=== PATIENT | male | born 1950 | race Caucasian/White ===

== ENCOUNTER → 2020-01-24 | Outpatient (CLI) | payer MEDICARE ==
--- NOTE | 2020-01-24 12:50 | XR ---
EXAMINATION TYPE: XR cervical spine 5 views, XR shoulder complete 3 views RT DATE OF EXAM: 01/24/2020 COMPARISON: NONE HISTORY: 69-year-old male M19.90, golfing injury FINDINGS: Cervical spine: Moderate disc/endplate degenerative change as well as uncovertebral joint and facet arthropathy mid t o lower cervical spine. Reversal of the normal cervical lordosis centered at C4. Cervical thoracic ju nction is obscured by the patient's shoulders and not assessed. Remaining alignment is maintained. No predental space widening or prevertebral soft tissue swelling. Limited odontoid view suggests some d egenerative joint space narrowing along the right C1-C2 lateral mass articulation. Right shoulder: Moderate to severe degenerative joint space narrowing with marginal spurring at the acromioclavicular joint. Subacromial space is preserved. No acute fracture, subluxation, dislocation. IMPRESSION: 1. Cervical spine: Prominent reversal of the normal cervical lordosis. The cervicothoracic junction i s obscured by the patient's shoulders and not assessed. Remaining alignment is maintained. Moderate s pondylotic change especially mid to lower cervical spine. 2. Right shoulder: Moderate to severe right AC joint OA. There is inferior spurring which may contrib ingrid to subacromial impingement. No acute osseous abnormality seen.
== END | disposition home or self-care (01) ==
LOC: RADXRMAIN 11:00
PROVIDERS: ATTEND Internal Medicine
DX: M47.812 Spondylosis without myelopathy or radiculopathy, cervical region (principal); R90.89 Other abnormal findings on diagnostic imaging of central nervous system; M19.011 Primary osteoarthritis, right shoulder
CPT/HCPCS: 72040

== ENCOUNTER 2023-01-22 02:37 | Emergency (ER) | payer MEDICARE ==
--- NOTE | 2023-01-22 03:04 | ED ---
General Adult HPI - General Chief complaint: Chest Pain Stated complaint: Chest Pain Time Seen by Provider: 01/22/23 02:47 Source: patient Mode of arrival: ambulatory Limitations: no limitations - History of Present Illness Initial comments: Dictation was produced using [employer] dictation software. please excuse any grammatical, word or spelling errors. Chief Complaint: 72-year-old male presents to the emergency department for chest pain History of Present Illness: Patient's 72-year-old male has multiple comorbidities. Patient presents with chest pain. States that his pain is in his right lower chest. States that his been exerting himself recently. This evening he couldn't get comfortable. States that the pain was sharp. Nonradiating not associated with diaphoresis or nausea. She denies any symptoms currently. The ROS documented in this emergency department record has been reviewed and confirmed by me. Those systems with pertinent positive or negative responses have been documented in the HPI. All other systems are other negative and/or noncontributory. - Related Data Home Medications Medication Instructions Recorded Confirmed Metoprolol Succinate [Toprol XL] 11/20/14 11/20/14 lisinopriL [Prinivil] 11/20/14 11/20/14 Previous Rx's Medication Instructions Recorded Meclizine [Antivert] 25 mg PO BID PRN #10 tab 11/20/14 Allergies Allergy/AdvReac Type Severity Reaction Status Date / Time Penicillins Allergy Unknown Verified 11/20/14 20:43 Childhood Review of Systems ROS Statement: Those systems with pertinent positive or pertinent negative responses have been documented in the HPI. ROS Other: All systems not noted in ROS Statement are negative. Past Medical History Past Medical History: Hypertension, Syncope History of Any Multi-Drug Resistant Organisms: None Reported Past Surgical History: Orthopedic Surgery, Pacemaker Additional Past Surgical History / Comment(s): hip surgery Past Psychological History: No Psychological Hx Reported Past Alcohol Use History: Daily Past Drug Use History: None Reported General Exam - General Exam Comments Initial Comments: PHYSICAL EXAM: General Impression: Alert and oriented x3, not in acute distress HEENT: Normocephalic atraumatic, extra-ocular movements intact, pupils equal and reactive to light bilaterally, mucous membranes moist. Cardiovascular: Heart regular rate and rhythm Chest: Able to complete full sentences, no retractions, no tachypnea Abdomen: abdomen soft, non-tender, non-distended, no organomegaly Musculoskeletal: Pulses present and equal in all extremities, no peripheral edema Motor: no focal deficits noted Neurological: CN II-XII grossly intact, no focal motor or sensory deficits noted Skin: Intact with no visualized rashes Psych: Normal affect and mood Limitations: no limitations Course Vital Signs 01/22/23 01/22/23 02:40 04:00 Temperature 98.0 F Pulse Rate 100 68 Respiratory 18 16 Rate Blood Pressure 175/105 168/89 O2 Sat by Pulse 98 97 Oximetry EKG Findings - EKG Comments: EKG Findings:: My EKG interpretation: Ventricular rate 84, atrial paced rhythm,. We'll to 20, QRS 112, QTC 49. No MT prolongation, no QTC prolongation, no ST or T-wave changes noted. . Overall, this EKG is unremarkable Medical Decision Making - Medical Decision Making Was pt. sent in by a medical professional or institution (, PA, ROOMS DIRECTOR, urgent care, hospital, or intermediate...) When possible be specific @ -No Did you speak to anyone other than the patient for history (EMS, parent, family, police, friend...)? What history was obtained from this source @ -No Did you review nursing and triage notes (agree or disagree)? Why? @ -I reviewed and agree with nursing and triage notes Were old charts reviewed (outside hosp., previous admission, EMS record, old EKG, old radiological studies, urgent care reports/EKG's, intermediate records)? Report findings @ -No old charts were reviewed Differential Diagnosis (chest pain, altered mental status, abdominal pain women, abdominal pain men, vaginal bleeding, musculoskeletal, weakness, fever, dyspnea, syncope, headache, dizziness, GI bleed, back pain, seizure, CVA, palpatations, mental health)? @ -Differential Chest Pain: Stable Angina, Unstable Angina, STEMI, NSTEMI Aortic Dissection, Pneumothorax, Musculoskeletal, Esophageal Spasm GERD, Cholecystitis, Pancreatitis, Zoster, this is not meant to be an all-inclusive list. EKG interpreted by me (3pts min.). @ -As above X-rays interpreted by me (1pt min.). @ -View chest x-ray shows no acute processes CT interpreted by me (1pt min.). @ -None done U/S interpreted by me (1pt. min.). @ -None done What testing was considered but not performed or refused? (CT, X-rays, U/S, labs)? Why? @ -None What meds were considered but not given or refused? Why? @ -None Did you discuss the management of the patient with other professionals (professionals i.e. , PA, ROOMS DIRECTOR, lab, RT, psych nurse, clinical social worker, rotor balancer, teacher, drug abuse resistance education officer, test case developer)? Give summary @ -No Was smoking cessation discussed for >3mins.? @ -No Was critical care preformed (if so, how long)? @ -No Were there social determinants of health that impacted care today? How? (Homelessness, low income, unemployed, alcoholism, drug addiction, transportation, low edu. Level, literacy, decrease access to med. care, assisted, rehab)? @ -No Was there de-escalation of care discussed even if they declined (Discuss DNR or withdrawal of care, Hospice)? DNR status @ -No What co-morbidities impacted this encounter? (DM, HTN, Smoking, COPD, CAD, Ca ncer, CVA, ARF, Chemo, Hep., AIDS, mental health diagnosis, sleep apnea, morbid obesity)? @ -None Was patient admitted / discharged? Hospital course, mention meds given and route, prescriptions, significant lab abnormalities, going to OR and other pertinent info. @ -72-year-old male presents emergency department with atypical chest pain. P atient asymptomatic at the bedside. Vital signs stable. EKG is unremarkable. Labs including cardiac enzymes negative. Patient discharge. Undiagnosed new problem with uncertain prognosis? @ -No Drug Therapy requiring intensive monitoring for toxicity (Heparin, Nitro, Insulin, Cardizem)? @ -No Were any procedures done? @ -No Diagnosis/symptom? Acute, or Chronic, or Acute on Chronic? Uncomplicated (without systemic symptoms) or Complicated (systemic symptoms)? @ -1. Chest strain Side effects of treatment? @ -No Exacerbation, Progression, or Severe Exacerbation? @ -No Poses a threat to life or bodily function? How? (Chest pain, [place], [place], pneumonia, PE, COPD, DKA, ARF, appy, cholecystitis, CVA, Diverticulitis, Homicidal, Suicidal, threat to staff... and all critical care pts) @ -No - Lab Data Result diagrams: 01/22/23 03:02 01/22/23 03:02 Lab Results 01/22/23 01/22/23 01/22/23 Range/Units 03:02 03:02 03:02 WBC 9.2 (3.8-10.6) k/uL RBC 4.60 (4.30-5.90) m/uL Hgb 13.5 (13.0-17.5) gm/dL Hct 41.5 (39.0-53.0) % MCV 90.3 (80.0-100.0) fL MCH 29.4 (25.0-35.0) pg MCHC 32.5 (31.0-37.0) g/dL RDW 12.4 (11.5-15.5) % Plt Count 206 (150-450) k/uL MPV 8.5 Neutrophils % 66 % Lymphocytes % 21 % Monocytes % 7 % Eosinophils % 2 % Basophils % 0 % Neutrophils # 6.1 (1.3-7.7) k/uL Lymphocytes # 1.9 (1.0-4.8) k/uL Monocytes # 0.6 (0-1.0) k/uL Eosinophils # 0.2 (0-0.7) k/uL Basophils # 0.0 (0-0.2) k/uL Sodium 138 (137-145) mmol/L Potassium 4.1 (3.5-5.1) mmol/L Chloride 101 (98-107) mmol/L Carbon Dioxide 28 (22-30) mmol/L Anion Gap 9 mmol/L BUN 37 H (9-20) mg/dL Creatinine 0.96 (0.66-1.25) mg/dL Est GFR (CKD-EPI)AfAm >90 (>60 ml/min/1.73 sqM) Est GFR (CKD-EPI)NonAf 78 (>60 ml/min/1.73 sqM) Glucose 105 H (74-99) mg/dL Calcium 9.4 (8.4-10.2) mg/dL Total Bilirubin 0.5 (0.2-1.3) mg/dL AST 35 (17-59) U/L ALT 17 (4-49) U/L Alkaline Phosphatase 82 (38-126) U/L Troponin I <0.012 (0.000-0.034) ng/mL Total Protein 7.2 (6.3-8.2) g/dL Albumin 4.4 (3.5-5.0) g/dL Lipase 85 (23-300) U/L Disposition Clinical Impression: Chest wall muscle strain Disposition: HOME SELF-CARE Condition: Good Instructions (If sedation given, give patient instructions): Chest Pain (ED) Is patient prescribed a controlled substance at d/c from ED?: No Referrals: Asya Lombardo MD [Primary Care Provider] - 1-2 days Time of Disposition: 04:13
[2023-01-22 03:22] LABS: ALT 17 U/L (4-49); AST 35 U/L (17-59); African American GFR (CKD) >90 (>60 ml/min/1.73 sqM); Albumin 4.4 g/dL (3.5-5.0); Alkaline Phosphatase 82 U/L (38-126); Anion Gap 9 mmol/L; Blood Urea Nitrogen 37 mg/dL (9-20); Calcium 9.4 mg/dL (8.4-10.2); Carbon Dioxide 28 mmol/L (22-30); Chloride 101 mmol/L (98-107); Glucose 105 mg/dL (74-99); Lipase 85 U/L (23-300); Non-African American GFR(CKD) 78 (>60 ml/min/1.73 sqM); Potassium 4.1 mmol/L (3.5-5.1); Sodium 138 mmol/L (137-145); Total Bilirubin 0.5 mg/dL (0.2-1.3); Total Protein 7.2 g/dL (6.3-8.2)
[2023-01-22 03:58] LABS: Basophils % (A) 0 %; Eosinophils # (A) 0.2 k/uL (0-0.7); Eosinophils % (A) 2 %; HCT 41.5 % (39.0-53.0); HGB 13.5 gm/dL (13.0-17.5); Lymphocytes # (A) 1.9 k/uL (1.0-4.8); Lymphocytes % (A) 21 %; MCH 29.4 pg (25.0-35.0); MCHC 32.5 g/dL (31.0-37.0); MCV 90.3 fL (80.0-100.0); Mean Platelet Volume 8.5; Monocytes # (A) 0.6 k/uL (0-1.0); Monocytes % (A) 7 %; Neutrophils # (A) 6.1 k/uL (1.3-7.7); Neutrophils % (A) 66 %; Platelet Count 206 k/uL (150-450); RDW 12.4 % (11.5-15.5); WBC 9.2 k/uL (3.8-10.6)
--- NOTE | 2023-01-22 04:05 | XR ---
EXAM: XR Chest, 2 Views CLINICAL HISTORY: ITS.REASON XR Reason: pain TECHNIQUE: Frontal and lateral views of the chest. COMPARISON: XR Chest dated 11/20/2014 FINDINGS: Lungs: Unremarkable. No consolidation. Pleural space: Unremarkable. No pneumothorax. Heart: Unremarkable. No cardiomegaly. Mediastinum: Unremarkable. Bones/joints: Unremarkable. Tubes, lines and devices: Stable left chest wall implanted cardiac device. Upper abdomen: Elevated right hemidiaphragm. IMPRESSION: No acute findings in the chest.
[2023-01-22 04:12] VITALS: RESP 16
[2023-01-22] MEDS ORDERED: ACET/COD 300 MG/30 MG STARTER PACK 6 TAB BTL PO STA (04:15)
[2023-01-22 04:24] VITALS: BP 154/87; PULSE 72; TEMP 98.2
== END 2023-01-22 04:23 | disposition home or self-care (01) ==
LOC: EC 02:37
DX: S29.011A Strain of muscle and tendon of front wall of thorax, initial encounter (principal); I10 Essential (primary) hypertension; Z79.899 Other long term (current) drug therapy; Z88.0 Allergy status to penicillin
CPT/HCPCS: 36415; 71046; 80053; 83690; 84484; 85025; 93005; 99285

== ENCOUNTER 2023-03-18 07:23 | Day surgery (SDC) | payer MEDICARE ==
[2023-03-17 11:15] VITALS: BMI 27.5
[~2023-03-18 07:23] MED LIST: ACETAMINOPHEN TAB 500 MG TAB PO PRN; HEPARIN SODIUM,PORCINE/PF 5,000 UNIT/0.5 ML SYRINGE SQ PRN
[2023-03-18] MEDS ORDERED: ONDANSETRON 4 MG/2 ML VIAL IVP ONE (07:42)
[2023-03-18] MEDS ORDERED: HYDROmorphone 0.5 MG/0.5 ML SYRINGE IVP PRN (07:42)
[2023-03-18] MEDS ORDERED: fentaNYL (PF) 50 MCG/ML 2 ML AMP IV PRN (07:42)
[2023-03-18] MEDS ORDERED: LACTATED RINGERS 1,000 ML IV SCH (07:42)
[2023-03-18] MEDS ORDERED: DEXAMETHASONE SOD PHOSPHATE 4 MG/ML 1 ML VIAL IV ONE (08:23)
[2023-03-18] MEDS ORDERED: LIDOCAINE 1% (10MG/ML) FOR IV START INTRADERMA ONE (08:23)
[2023-03-18] MEDS ORDERED: MIDAZOLAM 2 MG/2 ML VIAL IVP ONE (08:46)
[2023-03-18] MEDS ORDERED: fentaNYL (PF) 50 MCG/ML 2 ML AMP IVP ONE (08:46)
--- NOTE | 2023-03-18 09:17 | P.ANPRN ---
Procedure Note - Anesthesia - Nerve Block Performed Bilateral Erector Spinae Single Date of Procedure: 03/18/23 Procedure Start Time: 08:46 Procedure Stop Time: 09:00 Location of Patient: PreOp Indication: Acute Post-Operative Pain, Requested by Surgeon Specifically requested for management of pain by DrValeria: Valdo Landa Sedation Type: Sedate with meaningful contact maintained Preparation: Sterile Prep Position: Prone Catheter: None Needle Types: Pajunk Needle Gauge: 20 Ultrasound used to visualize needle placement: Yes Ultrasound used to observe medication spread: Yes Injectate: 0.5% Ropivacaine (see comment for volume) (20 mL/Decadron 4 mg per side)
[2023-03-18] MEDS ORDERED: KETOROLAC 15 MG/ML 1 ML VIAL ONE (09:29)
[2023-03-18] MEDS ORDERED: DEXAMETHASONE SOD PHOSPHATE 4 MG/ML 1 ML VIAL ONE (09:29)
[2023-03-18] MEDS ORDERED: NEOSTIGMINE 1 MG/ML 10 ML VIAL ONE (09:29)
[2023-03-18] MEDS ORDERED: SUCCINYLCHOLINE CHLORIDE 200 MG/10 ML VIAL IV ONE (09:29)
[2023-03-18] MEDS ORDERED: fentaNYL (PF) 50 MCG/ML 2 ML AMP ONE (09:29)
[2023-03-18] MEDS ORDERED: SODIUM CHLORIDE 0.9% (PF) 10 ML VIAL ONE (09:29)
[2023-03-18] MEDS ORDERED: PROPOFOL 10 MG/ML 20 ML VIAL IV ONE (09:29)
[2023-03-18] MEDS ORDERED: LIDOCAINE 2% INJ 20 MG/ML (2 ML VIAL) ONE (09:29)
[2023-03-18] MEDS ORDERED: GLYCOPYRROLATE 0.2 MG/ML 2 ML VIAL ONE (09:29)
[2023-03-18] MEDS ORDERED: ROPIVACAINE 5 MG/ML 30 ML VIAL ONE (09:29)
[2023-03-18] MEDS ORDERED: ROCURONIUM 10 MG/ML (5 ML VIAL) IV ONE (09:29)
[2023-03-18] MEDS ORDERED: LIDOCAINE 0.5%-EPI 1:200,000 50 ML VIAL SQ ONE (10:13)
--- NOTE | 2023-03-18 10:39 | P.OP ---
Date of Procedure: 03/18/23 Preoperative Diagnosis: Right inguinal hernia Postoperative Diagnosis: Right inguinal hernia Procedure(s) Performed: Laparoscopic robotic system repair of right inguinal hernia Excision of cord lipoma Transversus abdominis plane block Anesthesia: ELYSE Surgeon: Valdo Landa Estimated Blood Loss (ml): 5 Pathology: other (Cord lipoma) Condition: stable Disposition: PACU Description of Procedure: The patient's placed on the operating table in the supine position. The patient received general anesthesia. The patient's abdomen was prepped and draped in usual sterile fashion. The skin was anesthetized 1% local Xylocaine at the incision sites. Using an 11 blade a skin incision was made at the umbilicus. The fascia was grasped with a Amelie and then the peritoneal cavity was entered with the Veress needle. Position of the Veress needle was confirmed with a positive drop test. After adequate insufflation a 5 mm trocar was placed into the peritoneal cavity. The Laparoscope was placed the peritoneal cavity. And a robotic 8 mm trocar was placed in the right lateral position and then another 8 mm robotic trochars placed in the left lateral position. The original 5 mm trocar was exchanged for a 12 mm trocar. A four-quadrant transversus abdominis plane block was performed 1% local Xylocaine. The patient was placed in reverse Trendelenburg and then the patient was docked to the robot. Next the peritoneum over top of the hernia was incised and then using blunt and sharp dissection and electrocautery the hernia sac was dissected free from the floor of the inguinal canal. The hernia sac was completely reduced into the peritoneal cavity. The cord lipoma was dissected free and sent to pathology. And then using the Pro pan pusher mesh the hernia was repaired. The peritoneum was then sutured with 20V lock suture. The patient was then undocked the robot. The needle was withdrawn from the peritoneal cavity. The umbilical trocar site was closed with 0 Ethibond suture. The skin was closed interrupted 3-0 Monocryl suture. Dermabond dressing was applied. Patient was sent to recovery in stable condition.
[2023-03-18 10:43] VITALS: TEMP 97.1
[2023-03-18 11:45] VITALS: RESP 20
[2023-03-18] MEDS ORDERED: LACTATED RINGERS 1,000 ML IV ONE (11:47)
[2023-03-18 12:12] VITALS: BP 114/63; PULSE 59
== END 2023-03-18 13:52 | disposition home or self-care (01) ==
LOC: OR 07:23
PROVIDERS: ATTEND Surgery
DX: K40.90 Unilateral inguinal hernia, without obstruction or gangrene, not specified as recurrent (principal); D17.6 Benign lipomatous neoplasm of spermatic cord; I10 Essential (primary) hypertension; E78.5 Hyperlipidemia, unspecified; G40.909 Epilepsy, unspecified, not intractable, without status epilepticus; Z95.0 Presence of cardiac pacemaker; Z79.899 Other long term (current) drug therapy; Z88.0 Allergy status to penicillin; Z88.8 Allergy status to other drugs, medicaments and biological substances
CPT/HCPCS: 49650; 64999; 88304; C1781; J2250; J0330; J1100; J2710; J0690; J2405; J3010; J2795; J1885; J2704; J1644; J2001